=== PATIENT | male | born 1980 | race Caucasian/White ===

== ENCOUNTER 2017-09-19 10:00 | Emergency (ER) | payer MEDICAID ==
[~2017-09-19] VITALS: Ht 172.7 cm; Wt 84.0 kg
[~2017-09-19 10:00] MED LIST: ALBU8.5H8 INH; DULO30CA2 PO; HYDR25TA6 PO; LAMO200T3 PO; LISI-170 PO; MELO15TA24 PO; PREG225C PO
[2017-09-19 10:03] VITALS: BP 146/92
[2017-09-19] MEDS ORDERED: LIDOCAINE-MPF 1%, 5ML INFIL ONE (10:30)
[2017-09-19] MEDS ORDERED: LIDOCAINE-MPF 1%, 2ML ONE ×2 (10:53→10:54)
[2017-09-19] MEDS ORDERED: BACITRACIN ZINC OINT 500U/GM, 0.9 GM ONE (11:44)
== END 2017-09-19 12:23 | disposition home or self-care (01) ==
LOC: ED 11:30
DX: S61.012A Laceration without foreign body of left thumb without damage to nail, initial encounter (principal); F17.200 Nicotine dependence, unspecified, uncomplicated; I10 Essential (primary) hypertension; W26.0XXA Contact with knife, initial encounter; Y93.89 Activity, other specified; Y92.009 Unspecified place in unspecified non-institutional (private) residence as the place of occurrence of the external cause; Y99.8 Other external cause status
CPT/HCPCS: 12002; 99283